=== PATIENT | female | born 1950 | race Caucasian/White ===

== ENCOUNTER 2021-06-23 06:43 | Emergency (ER) | payer MEDICARE, OTHER ==
[~2021-06-23] VITALS: Ht 165.1 cm; Wt 77.1 kg
[~2021-06-23 06:43] MED LIST: BUPROPION XL300 MG PO; CETIRIZINE HCL5 MG PO; LIPITOR 10MG TA10 MG PO; OMEPRAZOLE40 MG PO; OS-CAL500 MG PO; OXYBUTYNIN CHLO10 MG PO
[2021-06-23] MEDS ORDERED: AZELASTINE137 MCG/0. (07:19)
[2021-06-23] MEDS ORDERED: DESYREL50 MG PO (07:20)
[2021-06-23 08:03] LABS: BASOPHIL 0.5 % (0-2); EOSINOPHIL 3.5 % (0-7); HCT 42.4 % (37.0-47.0); HGB 13.8 g/dl (12.5-16.0); LYMPHOCYTE 22.4 % (15-48); MCH 30.9 pg (25.0-31.0); MCHC 32.5 g/dL (32.0-36.0); MCV 94.9 fL (78.0-100.0); MONOCYTE 9.7 % (0-12); MPV 9.7 fL (6.0-9.5); NEUTROPHIL 63.7 % (41-80); NRBC 0; PLT 256 K/uL (150-400); RBC 4.47 M/uL (4.20-5.40); RDW 13.1 % (11.5-14.0); WBC 5.8 K/uL (4.0-10.5)
[2021-06-23 08:23] LABS: BILIRUBIN NEGATIVE (NEGATIVE); BLOOD NEGATIVE Ery/uL (NEGATIVE); CLARITY CLEAR (CLEAR); COLOR YELLOW (YELLOW); GLUCOSE (U) NORMAL (NORMAL); LEUKOCYTES NEGATIVE Leu/uL (NEGATIVE); NITRITE NEGATIVE (NEGATIVE); PROTEIN NEGATIVE (NEGATIVE); UROBILINOGEN 0.2 mg/dL (0.2-1.0); pH 6.5 (5.0-9.0)
[2021-06-23 08:39] LABS: CREATININE 0.85 mg/dL (0.51-0.95)
[2021-06-23 08:41] LABS: POTASSIUM 4.2 mmol/L (3.5-5.1)
[2021-06-23] MEDS ORDERED: MEDROL 4MG DOSEP4 MG PO (09:52)
[2021-06-23] MEDS ORDERED: TRAMADOL HCL50 MG PO (09:52)
== END 2021-06-23 10:30 | disposition home or self-care (01) ==
LOC: FER 06:43
PROVIDERS: Emergency Medicine
DX: M51.36 Other intervertebral disc degeneration, lumbar region (principal); M48.061 Spinal stenosis, lumbar region without neurogenic claudication; R03.0 Elevated blood-pressure reading, without diagnosis of hypertension; Z88.5 Allergy status to narcotic agent; Z88.8 Allergy status to other drugs, medicaments and biological substances
CPT/HCPCS: 36415; 72131; 80048; 81003; 84484; 85025; J1885; J2930; Q9967